=== PATIENT | male | born 1980 | race African-American/Black ===

== ENCOUNTER 2019-09-02 22:14 | Inpatient (IN) | payer OTHER, SELFPAY ==
[~2019-09-02 22:14] MED LIST: ISOVUE-370 76%-LOCM 1 ML ONE
[2019-09-02] MEDS ORDERED: Lorazepam 2 MG/ML VIAL ONE (22:50)
[2019-09-02 22:52] LABS: #Basophils 0.1 thou/uL (0.0-0.2); #Eosinphils 0.2 thou/uL (0.0-0.7); #Lymphocytes 1.9 thou/uL (1.20-3.40); #Monocytes 0.5 thou/uL (0.11-0.59); #Neutrophils 4.6 thou/uL (1.40-6.50); %Basophils 0.9 % (0.0-1.0); %Eosinophils 2.9 % (0.0-10.0); %Lymphocytes 26.7 % (21.0-51.0); %Monocytes 6.5 % (0.0-10.0); %Neutrophils 63.1 % (42.0-75.0); Hemoglobin 15.7 g/dL (14.0-18.0); Mean Corpuscular HGB CONC 31.9 g/dL (32.0-36.0); Mean Corpuscular Hemoglobin 27.6 pg (27.0-31.0); Mean Corpuscular Volume 86.4 fL (78.0-98.0); Mean Platelet Volume 7.9 fL (7.4-10.4); Platelet Count 179 thou/uL (130-400); RBC Distribution Width 12.3 % (11.5-14.5); Red Blood Cell (RBC) Count 5.68 mill/uL (4.70-6.10); White Blood Cell (WBC) Count 7.3 thou/uL (4.8-10.8)
[2019-09-02 23:12] LABS: Acetaminophen Less than 6.0 mcg/mL (10.0-30.0); Alcohol Less than 10 mg/dL (Less than 10); CK (CPK) 753 U/L (30-200); Salicylate Less than 8.0 mg/dL (15.0-30.0)
[2019-09-02] MEDS ORDERED: Rocuronium Bromide 10 MG/ML (10ML VIAL) ONE ×2 (23:12→23:23)
[2019-09-02] MEDS ORDERED: Propofol 1,000 MG/100 ML VIAL IV ONE (23:12)
[2019-09-02 23:13] LABS: ALT (SGPT) 37 U/L (8-55); AST (SGOT) 31 U/L (5-34); Albumin 4.5 g/dL (3.5-5.0); Alkaline Phosphatase 99 U/L (40-110); Anion Gap 12 mmol/L (10-20); BUN (Urea Nitrogen) 8 mg/dL (8.9-20.6); Bilirubin, Total 0.3 mg/dL (0.2-1.2); Calc. Creatinine Clearance 0 mL/min (70-130); Calcium 9.1 mg/dL (7.8-10.44); Carbon Dioxide 29 mmol/L (22-29); Chloride 106 mmol/L (98-107); Estimated GFR-MDRD Greater than 90; Globulin 2.9 g/dL (2.4-3.5); Glucose 88 mg/dL (70-105); Potassium 4.2 mmol/L (3.5-5.1); Protein, Total 7.4 g/dL (6.0-8.3); Sodium 143 mmol/L (136-145)
[2019-09-02] MEDS ORDERED: Ondansetron PF 4 MG/2 ML Vial ONE (23:18)
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
[2019-09-03 00:09] LABS: Lactic Acid 1.3 mmol/L (0.5-2.2)
[2019-09-03 00:42] LABS: Actual Bicarbonate (HCO3a) 24.3 mEq/L (22-28); Analyzer IN Cardio ER; Base Excess (BEa) -1.9 mEq/L (-2.0 to +3.0); CO2 Tension 46.3 mmHg (35.0-45.0); Calcium, Ionized 1.14 mmol/L (1.12-1.30); Carboxyhemoglobin (COHb) 2.4 gm% (0.0-3.0); Hemoglobin (Hb) 15.6 g/dL (14.0-18.0); O2 Tension (PaO2) 70.3 mmHg (80.0-100.0); Potassium - ABG Lab 3.95 mmol/L (3.70-5.30); pH, Arterial 7.34 (7.35-7.45)
[2019-09-03] MEDS ORDERED: Piperacillin/Tazobactam 4.5 GM VIAL ONE (00:53)
[2019-09-03] MEDS ORDERED: Midazolam HCl 5 mg/ml Vial ONE (00:58)
[2019-09-03 01:15] LABS: Amphetamine Not Detected (NotDetected); Barbiturates Screen Not Detected (NotDetected); Benzodiazepine Screen Not Detected (NotDetected); Cocaine Metabolite Screen Detected (NotDetected); Medtox Control Line Valid? VALID (VALID); Medtox Reader # READER 1; Methadone Not Detected (NotDetected); Methamphetamine Not Detected (NotDetected); Opiate Screen Not Detected (NotDetected); Oxycodone Screen Not Detected (NotDetected); Phencyclidine (PCP) Detected (NotDetected); THC/Cannabinoid Screen Not Detected (NotDetected); Tricyclic Screen Not Detected (NotDetected)
[2019-09-03] MEDS ORDERED: Fentanyl 100 MCG/2 ML VIAL ONE (01:47)
[2019-09-03] MEDS ORDERED: hydrALAZINE 20 MG/ML VIAL SLOW IVP PRN (02:05)
[2019-09-03] MEDS ORDERED: Dextrose 5% in Water 1,000 ML IV PRN (02:05)
[2019-09-03] MEDS ORDERED: Dextrose 50% Abboject 50 ML SYRINGE SLOW IVP PRN (02:05)
[2019-09-03] MEDS ORDERED: Ondansetron PF 4 MG/2 ML Vial IVP PRN (02:05)
[2019-09-03] MEDS ORDERED: Ventilator Sedation Protocol 1 EACH FS ONE (02:16)
[2019-09-03] MEDS ORDERED: Propofol 1,000 MG/100 ML VIAL IV PRN (02:37)
[2019-09-03] MEDS ORDERED: DISCONTINUE PREVIOUS NARCOTIC PAIN MEDICATIONS AND BENZODIAZEPINES FS SCH (02:37)
[2019-09-03] MEDS ORDERED: Morphine 2 MG/ML SYRINGE SLOW IVP PRN (02:37)
[2019-09-03] MEDS ORDERED: Lorazepam 2 MG/ML VIAL SLOW IVP PRN (02:37)
[2019-09-03] MEDS ORDERED: Fentanyl BOLUS 250 ML IVPB PRN (02:37)
[2019-09-03] MEDS ORDERED: Propofol BOLUS 1,000 MG/100 ML VIAL IV PRN (02:37)
[2019-09-03] MEDS ORDERED: fentaNYL Citrate/PF 2,000 MCG in Sodium Chloride 0.9% 60 ML IV SCH (02:37)
[2019-09-03] MEDS: Sodium Chloride 0.9% 1,000 ML IV SCH ×2 (02:41→10:57)
[2019-09-03 03:01] LABS: ALV-art Gradient 584.825 (0-20); Puncture Site RRA
[2019-09-03 03:03] VITALS: BMI 33.6
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
[2019-09-03 04:02] LABS: #Basophils 0.1 thou/uL (0.0-0.2); #Eosinphils 0.2 thou/uL (0.0-0.7); #Lymphocytes 1.9 thou/uL (1.20-3.40); #Monocytes 0.2 thou/uL (0.11-0.59); #Neutrophils 6.8 thou/uL (1.40-6.50); %Basophils 0.6 % (0.0-1.0); %Lymphocytes 20.5 % (21.0-51.0); %Monocytes 2.2 % (0.0-10.0); %Neutrophils 74.7 % (42.0-75.0); Mean Corpuscular Hemoglobin 27.8 pg (27.0-31.0); Mean Corpuscular Volume 87.1 fL (78.0-98.0); Mean Platelet Volume 7.7 fL (7.4-10.4); Platelet Count 172 thou/uL (130-400); RBC Distribution Width 12.3 % (11.5-14.5); Red Blood Cell (RBC) Count 5.37 mill/uL (4.70-6.10); White Blood Cell (WBC) Count 9.1 thou/uL (4.8-10.8)
[2019-09-03 04:28] LABS: Anion Gap 11 mmol/L (10-20); BUN (Urea Nitrogen) 7 mg/dL (8.9-20.6); CK (CPK) 772 U/L (30-200); Calc. Creatinine Clearance 149 mL/min (70-130); Calcium 8.3 mg/dL (7.8-10.44); Carbon Dioxide 26 mmol/L (22-29); Chloride 109 mmol/L (98-107); Estimated GFR-MDRD Greater than 90; Glucose 129 mg/dL (70-105); Potassium 3.7 mmol/L (3.5-5.1); Sodium 142 mmol/L (136-145)
[2019-09-03] MEDS ORDERED: Piperacillin/Tazobactam 3.375 GM in Sodium Chloride 0.9% 100 ML IVPB SCH (06:00)
[2019-09-03] MEDS ORDERED: Piperacillin/Tazobactam 4.5 GM in Sodium Chloride 0.9% 100 ML IVPB SCH (06:00)
--- NOTE | 2019-09-03 07:29 | CT ---
Final interpretation Head CT without contrast: 09/03/2019 comparison none history injury, trauma, pain FINDINGS: Mild mucosal thickening of bilateral ethmoid air cells noted. Age indeterminant subtle medi al orbital wall fracture on the right suspected. No intracranial hemorrhage, midline shift, or mass effect. No displaced calvarial fracture. IMPRESSION: No intracranial hemorrhage or displaced calvarial fracture. Probable old fracture of the medial orbital wall on the right. Code QA
--- NOTE | 2019-09-03 07:40 | CT ---
Final interpretation CT cervical spine without contrast: 09/03/2019 COMPARISON: 12/18/2008 HISTORY: trauma, pain, injury TECHNIQUE: Axial CT imaging at 2.5 mm intervals through the cervical spine without contrast. Coronal and sagittal reformatted imaging obtained. FINDINGS: C1 ring isintact.. Imaged lung apices appear unremarkable on the left. There is complete opacification of the imaged por tion of the right lung apex. There is an endotracheal tube and nasogastric tube in place, incompletely imaged. The craniocervical and cervicothoracic junctionappear intact. Prevertebral soft tissuesdemonstrate no acute findings. The occipital condyles, the dens, and the C1-2 articulationappear unremarkable. There is disc space narrowing with anterior and posterior osteophyte formation at C5-6 and C6-7. No d isplaced fracture or evidence of dislocation noted within the cervical spine. The nasogastric tube demonstrates a tortuous course in the oropharyngeal and hypopharyngeal region wi th adjacent fluid seen. This report is in agreement with the preliminary report. IMPRESSION:No acute osseous abnormality. Please see above discussion. Code QA.
--- NOTE | 2019-09-03 07:44 | RAD ---
EXAM: Single view of the chest HISTORY: Intubated patient with respiratory failure COMPARISON: 09/02/2019 FINDINGS: Single view of the chest shows a normal sized cardiomediastinal silhouette. The endotrache al tube is unchanged in position. An NG tube is seen in the stomach. There is significant improvement in the airspace opacity in the right lung with a small amount of persistent airspace opac ity in the right lower lobe. The bones are unremarkable. IMPRESSION: Improvement in right pulmonary opacity
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
[2019-09-03 08:09] LABS: Actual Bicarbonate (HCO3a) 25.2 mEq/L (22-28); Base Excess (BEa) 1.2 mEq/L (-2.0 to +3.0); CO2 Tension 38.1 mmHg (35.0-45.0); Calcium, Ionized 1.13 mmol/L (1.12-1.30); Hemoglobin (Hb) 14.7 g/dL (14.0-18.0); O2 Tension (PaO2) 293.3 mmHg (80.0-100.0); Potassium - ABG Lab 3.55 mmol/L (3.70-5.30); pH, Arterial 7.44 (7.35-7.45)
[2019-09-03 08:26] LABS: ALV-art Gradient 372.075 (0-20); Puncture Site L.B.
[2019-09-03] MEDS ORDERED: Famotidine/PF 20 mg/2ml Vial SLOW IVP SCH (09:00)
[2019-09-03] MEDS ORDERED: FLU VACC QS2019-20(6MOS UP)/PF 60 MCG/0.5 ML SYRINGE IM ONE (09:00)
[2019-09-03] MEDS ORDERED: traMADol HCl 50 MG TAB PO PRN (10:23)
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
[2019-09-03] MEDS: Acetaminophen 500 MG TAB PO SCH ×3 (16:19→23:00)
[2019-09-03] MEDS: Enoxaparin Sodium 40 MG/0.4 ML SYRINGE SC SCH (20:42)
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
[2019-09-04] MEDS: traMADol HCl 50 MG TAB PO PRN ×3 (03:00→16:13)
[2019-09-04] MEDS: Acetaminophen 500 MG TAB PO SCH ×4 (06:32→23:21)
[2019-09-04] MEDS: Senokot S 8.6-50 MG TAB PO SCH ×2 (08:47→20:45)
[2019-09-04] MEDS: Polyethylene Glycol 3350 17 GM Packet PO SCH (08:48)
--- NOTE | 2019-09-04 09:38 | RAD ---
PORTABLE CHEST: Date: 09/04/2019 COMPARISON: 09/03/2019. FINDINGS/IMPRESSION: ET tube and NG tube have been removed. There is persistent infiltrate in the right lung base, althoug h the right lung infiltrate changes have improved when compared to yesterday. Left lung remains clear . POS: [facility]
[2019-09-04] MEDS: Gabapentin 300 MG CAP PO SCH ×2 (10:06→20:44)
[2019-09-04] MEDS: Ibuprofen 600 MG TAB PO SCH ×3 (11:46→23:21)
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
[2019-09-04] MEDS: Enoxaparin Sodium 40 MG/0.4 ML SYRINGE SC SCH (20:45)
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
[2019-09-05] MEDS: Ibuprofen 600 MG TAB PO SCH ×2 (05:28→11:41)
[2019-09-05] MEDS: Acetaminophen 500 MG TAB PO SCH ×2 (05:28→11:42)
[2019-09-05] MEDS: Polyethylene Glycol 3350 17 GM Packet PO SCH (08:50)
[2019-09-05] MEDS: Senokot S 8.6-50 MG TAB PO SCH (08:50)
[2019-09-05] MEDS: Gabapentin 300 MG CAP PO SCH (08:50)
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
[2019-09-05 12:17] VITALS: BP 145/84; TEMP 97.8
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
== END 2019-09-05 14:05 | disposition home or self-care (01) | DRG 208 ==
LOC: EEVIPCON 22:14 → ERS 22:14 → CCU 23:30 → SURG A 09-03 21:48
PROVIDERS: ADMIT Surgery; ATTEND Surgery
PROC: 0BH17EZ Insertion of Endotracheal Airway into Trachea, Via Natural or Artificial Opening (ICD-10-PCS; principal; 2019-09-02)
PROC: 5A1935Z Respiratory Ventilation, Less than 24 Consecutive Hours (ICD-10-PCS; 2019-09-02)
DX: J69.0 Pneumonitis due to inhalation of food and vomit (principal); R40.2112 Coma scale, eyes open, never, at arrival to emergency department; R40.2212 Coma scale, best verbal response, none, at arrival to emergency department; J96.00 Acute respiratory failure, unspecified whether with hypoxia or hypercapnia; S32.019A Unspecified fracture of first lumbar vertebra, initial encounter for closed fracture; S32.029A Unspecified fracture of second lumbar vertebra, initial encounter for closed fracture; S50.811A Abrasion of right forearm, initial encounter; R40.2352 Coma scale, best motor response, localizes pain, at arrival to emergency department; I10 Essential (primary) hypertension; S06.0X0A Concussion without loss of consciousness, initial encounter; F14.10 Cocaine abuse, uncomplicated; S16.1XXA Strain of muscle, fascia and tendon at neck level, initial encounter; F17.210 Nicotine dependence, cigarettes, uncomplicated; V03.90XA Pedestrian on foot injured in collision with car, pick-up truck or van, unspecified whether traffic or nontraffic accident, initial encounter
CPT/HCPCS: 36415; 70450; 71045; 71260; 72125; 72141; 74177; 80048; 80053; 80306; 80307; 82550; 82805; 83605; 83735; 84484; 85025; 93005; 94002; 94640; 94660; J1650; J2060; J2250; J2405; J2543; J2704; J3010; J3370; J7620; Q9966; S0028

== ENCOUNTER 2021-02-15 19:15 | Emergency (ER) | payer OTHER, SELFPAY ==
[2021-02-15 20:20] LABS: #Eosinphils 0.1 thou/uL (0.0-0.7); #Lymphocytes 1.4 thou/uL (1.20-3.40); #Monocytes 0.7 thou/uL (0.11-0.59); #Neutrophils 4.9 thou/uL (1.40-6.50); %Basophils 0.2 % (0.0-1.0); %Eosinophils 0.8 % (0.0-10.0); %Lymphocytes 19.2 % (21.0-51.0); %Monocytes 9.8 % (0.0-10.0); %Neutrophils 69.9 % (42.0-75.0); Hemoglobin 13.8 g/dL (14.0-18.0); Mean Corpuscular HGB CONC 34.2 g/dL (32.0-36.0); Mean Corpuscular Hemoglobin 30.2 pg (27.0-31.0); Mean Corpuscular Volume 88.3 fL (78.0-98.0); Mean Platelet Volume 8.5 fL (7.4-10.4); Platelet Count 180 thou/uL (130-400); RBC Distribution Width 12.9 % (11.5-14.5); Red Blood Cell (RBC) Count 4.58 mill/uL (4.70-6.10)
[2021-02-15 20:30] LABS: PTT 33.6 sec (22.9-36.1); Prothrombin Time 13.4 sec (12.0-14.7)
[2021-02-15 20:54] LABS: ALT (SGPT) 21 U/L (8-55); AST (SGOT) 35 U/L (5-34); Albumin 3.7 g/dL (3.5-5.0); Alkaline Phosphatase 76 U/L (40-110); Anion Gap 17 mmol/L (10-20); BUN (Urea Nitrogen) 9 mg/dL (8.9-20.6); Bilirubin, Total 0.5 mg/dL (0.2-1.2); Calc. Creatinine Clearance 0 mL/min (70-130); Calcium 8.8 mg/dL (7.8-10.44); Carbon Dioxide 20 mmol/L (22-29); Chloride 101 mmol/L (98-107); Globulin 3.7 g/dL (2.4-3.5); Glucose 98 mg/dL (70-105); Potassium 4.7 mmol/L (3.5-5.1); Protein, Total 7.4 g/dL (6.0-8.3); Sodium 133 mmol/L (136-145)
[2021-02-15] MEDS ORDERED: CEFAZOLIN 1 GM VIAL ONE (21:06)
[2021-02-15] MEDS ORDERED: Boostrix 0.5 ML (Tdap) VIAL ONE (21:55)
== END 2021-02-15 22:31 | disposition short-term general hospital (02) ==
LOC: ERS 19:15
DX: S02.122A Fracture of orbital roof, left side, initial encounter for closed fracture (principal); S02.40FA Zygomatic fracture, left side, initial encounter for closed fracture; S02.19XA Other fracture of base of skull, initial encounter for closed fracture; I10 Essential (primary) hypertension; Y04.0XXA Assault by unarmed brawl or fight, initial encounter
CPT/HCPCS: 36415; 70450; 70486; 72125; 80053; 85025; 85610; 85730; 90471; 90715; 96374; J0690

== ENCOUNTER 2021-05-17 02:36 | Emergency (ER) | payer OTHER, SELFPAY ==
[2021-05-17] MEDS ORDERED: Cefepime 2 GM VIAL ONE (02:40)
[2021-05-17] MEDS ORDERED: Boostrix 0.5 ML (Tdap) VIAL ONE (02:40)
[2021-05-17] MEDS ORDERED: Fentanyl 100 MCG/2 ML VIAL ONE (02:45)
[2021-05-17 02:54] LABS: #Basophils 0.1 thou/uL (0.0-0.2); #Eosinphils 0.2 thou/uL (0.0-0.7); #Monocytes 0.4 thou/uL (0.11-0.59); #Neutrophils 4.5 thou/uL (1.40-6.50); %Basophils 1.1 % (0.0-1.0); %Eosinophils 2.1 % (0.0-10.0); %Lymphocytes 28.2 % (21.0-51.0); %Monocytes 6.1 % (0.0-10.0); %Neutrophils 62.6 % (42.0-75.0); Hemoglobin 14.7 g/dL (14.0-18.0); Mean Corpuscular HGB CONC 34.2 g/dL (32.0-36.0); Mean Corpuscular Hemoglobin 29.3 pg (27.0-31.0); Mean Corpuscular Volume 85.6 fL (78.0-98.0); Mean Platelet Volume 7.6 fL (7.4-10.4); Platelet Count 224 thou/uL (130-400); RBC Distribution Width 12.4 % (11.5-14.5); White Blood Cell (WBC) Count 7.2 thou/uL (4.8-10.8)
[2021-05-17 03:05] LABS: INR-International Normal Ratio 0.9; Prothrombin Time 12.6 sec (12.0-14.7)
[2021-05-17 03:06] LABS: PTT 28.7 sec (22.9-36.1)
[2021-05-17 03:16] LABS: ALT (SGPT) 19 U/L (8-55); AST (SGOT) 29 U/L (5-34); Albumin 4.3 g/dL (3.5-5.0); Alkaline Phosphatase 82 U/L (40-110); Anion Gap 16 mmol/L (10-20); BUN (Urea Nitrogen) 18 mg/dL (8.9-20.6); Bilirubin, Total 0.3 mg/dL (0.2-1.2); Calc. Creatinine Clearance 0 mL/min (70-130); Calcium 9.3 mg/dL (7.8-10.44); Carbon Dioxide 24 mmol/L (22-29); Chloride 106 mmol/L (98-107); Globulin 3.1 g/dL (2.4-3.5); Glucose 123 mg/dL (70-105); Potassium 4.3 mmol/L (3.5-5.1); Protein, Total 7.4 g/dL (6.0-8.3); Sodium 142 mmol/L (136-145)
[2021-05-17] MEDS ORDERED: HYDROcodone/Acetaminophen 5/325 mg Tablet ONE (03:58)
== END 2021-05-17 07:15 | disposition home or self-care (01) ==
LOC: ERS 02:36
DX: S71.132A Puncture wound without foreign body, left thigh, initial encounter (principal); I10 Essential (primary) hypertension; Z23 Encounter for immunization; W34.00XA Accidental discharge from unspecified firearms or gun, initial encounter
CPT/HCPCS: 83605; 86850; 86900; 86901; 90471; 90715; 96374; G0390; J0692; J3010